=== PATIENT | female | born 1990 ===

== ENCOUNTER 2017-10-20 12:29 | Emergency (ER) | payer OTHER ==
[2017-10-20 12:56] VITALS: BP 102/67; PULSE 60; RESP 20; TEMP 98.2; O2SAT 100
--- NOTE | 2017-10-20 13:22 | C.PDOC ---
History Of Present Illness 27 y/o female with no PMHx presents to ED with complaints of throbbing diffuse headache with associated nausea and blurred vision gradually developed since this morning. Pt admits, took 2 aspirin with no improvement. Patient reports she was recently diagnosed with Tinea on Right cheek, using Topical cream with moderate improvement, also completed AMoxicilllin course ( last dose was yesterday). Otherwise, patient denies recently illness, fever, chills, denies "worse headache of life" , dizziness, N/V, double vision, floaters, denies salomon pain, drooling, dysphagia, dyspnea, CP, SOB, palpitation, abd. pain, diarrhea, back pain, denies weakness, sensory or vascular deficits to B?L UEs and LEs. Ambulate to ED for evaluation, not in any apparent distress. Time Seen by Provider: 10/20/17 12:59 Chief Complaint (Nursing): Headache History Per: Patient History/Exam Limitations: no limitations Onset/Duration Of Symptoms: Hrs Current Symptoms Are (Timing): Still Present Past Medical History Reviewed: Historical Data, Nursing Documentation, Vital Signs Vital Signs: Last Vital Signs Temp 98.2 F 10/20/17 12:51 Pulse 60 10/20/17 12:51 Resp 20 10/20/17 12:51 BP 102/67 10/20/17 12:51 Pulse Ox 100 10/20/17 15:02 - Medical History PMH: No Chronic Diseases Surgical History: No Surg Hx Family History: States: No Known Family Hx - Social History Hx Alcohol Use: No Hx Substance Use: No - Immunization History Hx Tetanus Toxoid Vaccination: No Hx Influenza Vaccination: No Hx Pneumococcal Vaccination: No Review Of Systems Constitutional: Negative for: Fever, Chills Eyes: Positive for: Vision Change Gastrointestinal: Positive for: Nausea. Negative for: Vomiting, Abdominal Pain Skin: Negative for: Rash Neurological: Positive for: Headache. Negative for: Weakness, Numbness, Dizziness Physical Exam - Physical Exam Appears: Non-toxic, No Acute Distress Skin: Normal Color, Warm, Dry, Rash (erythematous pacth with clear center noted to Right cheek area. No edema, no proximal streaking, no discharges.) Head: Atraumatic, Normacephalic Eye(s): bilateral: PERRL, EOMI Ear(s): Bilateral: Normal Nose: No Flaring, No Discharge Oral Mucosa: Moist, No Drooling Tongue: Normal Appearing Lips: Normal Appearing Throat: No Erythema, No Drooling Neck: Trachea Midline, Supple, Other ((-) meningeal sign) Cardiovascular: Rhythm Regular, No Murmur, No JVD Respiratory: No Decreased Breath Sounds, No Accessory Muscle Use, No Rales, No Rhonchi, No Wheezing Gastrointestinal/Abdominal: Soft, No Tenderness, No Guarding, No Rebound Back: No CVA Tenderness Extremity: Normal ROM, No Pedal Edema, No Calf Tenderness, No Swelling Neurological/Psych: Oriented x3, Normal Speech, Normal Cognition, Normal Motor, Normal Sensation, Normal Reflexes Gait: Steady ED Course And Treatment - Laboratory Results Urine POC: Negative O2 Sat by Pulse Oximetry: 100 (RA) Pulse Ox Interpretation: Normal Progress Note: On re-evaluation, pt is afebrile, hemodynamicaly stable. Non- toxic. Tolerate PO well in ED. PulseOx 100% RA. Head: AT/NC. ENT: no acute findings. uvula midline, no edema. neck: Supple, (-) meningeal sign. Lungs: CTA B/L, BS equal B/L. CVS: (+)S1S2, reg. Abd: benign. Neuorlogicaly intact. UA results review (+)WBC. Pt has clinical findings c/w headache r/o migraine , UTI sx. Pt advised. re.f to f/u with PMD, neurologist in 2-3 days for re- eavl. return to ED if any worsening ro new changes Disposition Counseled Patient/Family Regarding: Studies Performed, Diagnosis, Need For Followup, Rx Given - Disposition Referrals: [facility] [Outside] Adolph Alvarez MD [Staff Provider] - Disposition: HOME/ ROUTINE Disposition Time: 13:52 Condition: STABLE Additional Instructions: TAKE MEDICATION PRESCRIBED NEED FOR HEADACHE BEDREST, ENCOURAGE FLUIDS FOLLOW UP WITH PMD, AND NEUROLOGY IN 2- 3DAYS FOR RE-EVALUATION. RETURN TO ED IF ANY WORSENING OR NEW CHANGES. Prescriptions: Acetaminophen/Butalbital/Caf [Fioricet] 1 tab PO TID PRN #14 tab PRN Reason: Headache Nitrofurantoin Macrocrystals [Macrobid] 1 cap PO BID #14 cap Instructions: Urinary Tract Infection in Women (ED), Migraine Headache (ED), Tension Headache (ED) Forms: [employer] (Colombian) Print Language: TELUGU - Clinical Impression Clinical Impression: Headache, Migraine, Urinary tract infection - PA / HUMAN RESOURCE MANAGEMENT INSTRUCTOR / Resident Statement MD/DO has reviewed & agrees with the documentation as recorded. - Scribe Statement The provider has reviewed the documentation as recorded by the Kofiibevelio Marcum All medical record entries made by the Alfreda were at my direction and personally dictated by me. I have reviewed the chart and agree that the record accurately reflects my personal performance of the history, physical exam, medical decision making, and the department course for this patient. I have also personally directed, reviewed, and agree with the discharge instructions and disposition.
[2017-10-20 13:56] LABS: URINE BILIRUBIN NEGATIVE (NEGATIVE); URINE BLOOD NEGATIVE (NEGATIVE); URINE COLOR Yellow (YELLOW); URINE GLUCOSE (UA) NORMAL (Normal); URINE KETONE NEGATIVE (NEGATIVE); URINE LEUKOCYTE ESTERASE 3+ Leu/uL (Negative); URINE PROTEIN NEGATIVE (NEGATIVE); URINE UROBILINOGEN NORMAL mg/dL (0.2-1.0)
[2017-10-20 14:29] LABS: RBC URINE 2 /hpf (0-3)
[2017-10-20 14:30] LABS: URINE BACTERIA OCC (<OCC); WBC URINE 6 /hpf (0-5)
== END 2017-10-20 15:10 | disposition home or self-care (01) ==
LOC: C.ER 12:29
DX: G43.909 Migraine, unspecified, not intractable, without status migrainosus (principal); N39.0 Urinary tract infection, site not specified
CPT/HCPCS: 81001; 84703; 96372; 99285; J1885

== ENCOUNTER 2018-02-10 09:16 | Emergency (ER) | payer OTHER ==
--- NOTE | 2018-02-10 10:40 | C.PDOC ---
History Of Present Illness 27 y/o female presents to ED with complaints of suprapubic and epigastric abdominal pain since yesterday with associated distention after po intake. Patient reports throat pain when swallowing and states she has noted blood when wiping after urinating since yesterday. Last LMP was2 months ago but reports home test have been negative, last one was taken 2 weeks ago. Patient admits to last bowel movement this morning and denies fever, chills, vaginal discharge, dysuria or any other complaints at this time. Time Seen by Provider: 02/10/18 09:29 Chief Complaint (Nursing): Abdominal Pain History Per: Patient History/Exam Limitations: no limitations Onset/Duration Of Symptoms: Days Current Symptoms Are (Timing): Still Present Location Of Pain/Discomfort: Epigastric, Suprapubic Past Medical History Reviewed: Historical Data, Nursing Documentation, Vital Signs Vital Signs: Last Vital Signs Temp 98.6 F 02/10/18 12:59 Pulse 72 02/10/18 12:59 Resp 18 02/10/18 12:59 BP 110/72 02/10/18 12:59 Pulse Ox 99 02/13/18 20:39 - Medical History PMH: No Chronic Diseases Surgical History: No Surg Hx Family History: States: No Known Family Hx - Social History Hx Alcohol Use: No Hx Substance Use: No - Immunization History Hx Tetanus Toxoid Vaccination: No Hx Influenza Vaccination: No Hx Pneumococcal Vaccination: No Review Of Systems Constitutional: Negative for: Fever, Chills ENT: Positive for: Throat Pain Respiratory: Negative for: Cough Gastrointestinal: Positive for: Abdominal Pain. Negative for: Nausea, Vomiting , Constipation Genitourinary: Negative for: Dysuria, Vaginal Discharge Skin: Negative for: Rash Physical Exam - Physical Exam Appears: Non-toxic, No Acute Distress Skin: Warm, Dry, No Rash Head: Atraumatic, Normacephalic Eye(s): bilateral: PERRL, EOMI Oral Mucosa: Moist Tongue: Normal Appearing Lips: Normal Appearing Throat: Erythema, No Exudate, Other (Right tonsil swollen) Neck: Normal ROM, Supple Cardiovascular: Rhythm Regular, No Murmur Respiratory: Normal Breath Sounds, No Rales, No Rhonchi, No Wheezing Gastrointestinal/Abdominal: Soft, Tenderness (Mild suprapubic and Epigastric), No Distention, No Guarding, No Rebound Back: No CVA Tenderness Extremity: Normal ROM, No Tenderness Neurological/Psych: Oriented x3, Normal Speech, Normal Cognition ED Course And Treatment - Laboratory Results Result Diagrams: 02/10/18 10:35 02/10/18 10:35 O2 Sat by Pulse Oximetry: 99 (RA) Pulse Ox Interpretation: Normal Progress Note: Blood work, UA, Urine culture, Rapid Strep test ordered. Pepcid administered Medical Decision Making Medical Decision Making: pt with urinary symptoms, suprapubic and epigastric pain. labs normal. pt feeling better after pepcid. upreg neg. abdomen soft, nd nt on re-exam. d/c home with keflex for +strep and uti. Disposition Counseled Patient/Family Regarding: Studies Performed, Diagnosis, Need For Followup, Rx Given - Disposition Referrals: [facility] [Outside] Disposition: HOME/ ROUTINE Disposition Time: 12:30 Condition: IMPROVED Additional Instructions: Por favor melecio ms hollis. [place] antibiticos segn lo prescrito. [place] pepcid para el dolor abdominal. Seguimiento en la clnica [place]. Prescriptions: Cephalexin [Keflex] 250 mg PO Q6 #28 capsule Famotidine [Pepcid] 20 mg PO DAILY #14 tab Instructions: Urinary Tract Infection, Adult (DC), Strep Throat (DC) Forms: Gen Discharge Inst [employer], [facility] (Stateless) Print Language: BRAZILIAN - Clinical Impression Clinical Impression: Strep pharyngitis, UTI (urinary tract infection) - PA / PROFILING MACHINE SET UP OPERATOR TOOL / Resident Statement MD/DO has reviewed & agrees with the documentation as recorded. - Scribe Statement The provider has reviewed the documentation as recorded by the Kofiibevelio Marcum All medical record entries made by the Alfreda were at my direction and personally dictated by me. I have reviewed the chart and agree that the record accurately reflects my personal performance of the history, physical exam, medical decision making, and the department course for this patient. I have also personally directed, reviewed, and agree with the discharge instructions and disposition.
[2018-02-10 10:44] LABS: BASO # 0.1 K/uL (0.0-0.2); BASO % 0.8 % (0.0-2.0); EOS # 0.4 K/uL (0.0-0.7); EOS % 4.8 % (0.0-4.0); LYMPH # 2.2 K/uL (1.0-4.3); MEAN CELL VOLUME 83.1 fL (81.0-99.0); MEAN CORPUSCULAR HEMOGLOBIN 27.4 pg (27.0-31.0); MEAN CORPUSCULAR HGB CONC 32.9 g/dL (33.0-37.0); MEAN PLATELET VOLUME 7.6 fL (7.2-11.7); MONO # 0.4 K/uL (0.0-0.8); MONO % 5.4 % (0.0-10.0); NEUT # 4.8 K/uL (1.8-7.0); RBC 4.74 Mil/uL (3.80-5.20); RED CELL DISTRIBUTION WIDTH 14.8 % (11.5-14.5); WHITE BLOOD COUNT 7.8 K/uL (4.8-10.8)
[2018-02-10 10:51] LABS: SQUAMOUS EPITHIAL 27 /hpf (0-5); URINE BILIRUBIN NEGATIVE (NEGATIVE); URINE BLOOD 1+ (NEGATIVE); URINE CLARITY Hazy (Clear); URINE GLUCOSE (UA) NORMAL (Normal); URINE LEUKOCYTE ESTERASE 1+ Leu/uL (Negative); URINE PROTEIN NEGATIVE (NEGATIVE); URINE UROBILINOGEN NORMAL mg/dL (0.2-1.0)
[2018-02-10 10:53] LABS: ALB/GLOB RATIO 1.1 (1.0-2.1); ALT/SGPT 32 U/L (9-52); AST/SGOT 27 U/L (14-36); BLOOD UREA NITROGEN 7 mg/dL (7-17); CALCIUM 8.9 mg/dl (8.6-10.4); GFR AFRICAN-AMERICAN > 60; GFR NON-AFRICAN AMERICAN > 60; LIPASE 56 U/L (23-300)
[2018-02-10 10:54] LABS: URINE COLOR YELLOW (YELLOW)
[2018-02-10 13:01] VITALS: BP 110/72; PULSE 72; RESP 18; TEMP 98.6
[2018-02-13 20:39] VITALS: O2SAT 99
== END 2018-02-10 13:00 | disposition home or self-care (01) ==
LOC: C.ER 09:16
DX: N39.0 Urinary tract infection, site not specified (principal); J02.0 Streptococcal pharyngitis

== ENCOUNTER 2018-03-15 11:35 | Emergency (ER) | payer SELFPAY ==
[2018-03-15 11:54] VITALS: BMI 30.3
[2018-03-15 11:57] VITALS: O2SAT 99
[2018-03-15 12:10] LABS: HCG,QUALITATIVE URINE NEGATIVE (NEGATIVE)
[2018-03-15 12:13] LABS: SQUAMOUS EPITHIAL 2 /hpf (0-5); URINE BACTERIA RARE (<OCC); URINE BILIRUBIN NEGATIVE (NEGATIVE); URINE BLOOD 3+ (NEGATIVE); URINE CLARITY Clear (Clear); URINE COLOR Yellow (YELLOW); URINE GLUCOSE (UA) NORMAL (Normal); URINE LEUKOCYTE ESTERASE 1+ Leu/uL (Negative); URINE PROTEIN NEGATIVE (NEGATIVE); URINE UROBILINOGEN NORMAL mg/dL (0.2-1.0)
--- NOTE | 2018-03-15 13:11 | C.PDOC ---
History Of Present Illness 28 y/o female presents to the ER complaining of intermittent RLQ abdominal pain which has been present since yesterday. Patient states that the pain is mild. Patient reports that she was evaluated in the ER 2 weeks ago for upper abdominal pain. She notes that she does not have upper abdominal pain anymore. Patient is also complaining of whitish vaginal discharge which has been present for the past 1 week. She has irregular periods and her LMP was on 12/21/17. States she took test which was negative. 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 Patient denies having nausea, vomiting, diarrhea, and constipation. Time Seen by Provider: 03/15/18 12:16 Chief Complaint (Nursing): Abdominal Pain History Per: Patient History/Exam Limitations: no limitations Onset/Duration Of Symptoms: Days Current Symptoms Are (Timing): Still Present Severity: Moderate Location Of Pain/Discomfort: RLQ Associated Symptoms: denies: Fever, Chills, Nausea, Vomiting, Diarrhea, Constipation Past Medical History Reviewed: Historical Data, Nursing Documentation, Vital Signs Vital Signs: Last Vital Signs Temp 98.1 F 03/15/18 11:50 Pulse 61 03/15/18 11:50 Resp 18 03/15/18 11:50 BP 117/71 03/15/18 11:50 Pulse Ox 99 03/15/18 13:18 - Medical History PMH: No Chronic Diseases Surgical History: No Surg Hx Family History: States: No Known Family Hx - Social History Hx Alcohol Use: No Hx Substance Use: No - Immunization History Hx Tetanus Toxoid Vaccination: No Hx Influenza Vaccination: No Hx Pneumococcal Vaccination: No Review Of Systems Except As Marked, All Systems Reviewed And Found Negative. Constitutional: Negative for: Fever, Chills Gastrointestinal: Positive for: Abdominal Pain. Negative for: Nausea, Vomiting , Diarrhea, Constipation, Hematochezia, Rectal Pain Genitourinary: Positive for: Frequency, Vaginal Discharge. Negative for: Dysuria Skin: Negative for: Rash Neurological: Negative for: Headache Physical Exam - Physical Exam Appears: Well, Non-toxic, No Acute Distress Skin: Normal Color, Warm, Dry Head: Atraumatic, Normacephalic Eye(s): bilateral: Normal Inspection, EOMI Neck: Normal ROM, Supple Chest: Symmetrical Cardiovascular: Rhythm Regular Respiratory: Normal Breath Sounds, No Rales, No Rhonchi, No Wheezing Gastrointestinal/Abdominal: Soft, Tenderness (minimal tenderness to RLQ with deep palpation), No Mass, No Distention, No Guarding, No Rebound, No Hernia, Other (overweight) Back: Normal Inspection, No CVA Tenderness Pelvic: Normal External Exam (no lesions), Vaginal Bleeding (mild blood in vaginal vault), No Vaginal Discharge, No Cervical Motion Tenderness, No Adnexal Tenderness Extremity: Normal ROM Neurological/Psych: Oriented x3, Normal Speech ED Course And Treatment - Laboratory Results Result Diagrams: 03/15/18 13:10 03/15/18 13:10 O2 Sat by Pulse Oximetry: 99 (RA) Pulse Ox Interpretation: Normal - CT Scan/US transvaginal Other Rad Studies (CT/US): Read By Radiologist, Radiology Report Reviewed CT/US Interpretation: Accession No. : [id number]. Patient Name / ID : PEPE IRVIN / [id number]. Exam Date : 03/15/2018 13:39:45 ( Approved ). Study Comment : Sex / Age : F / 28Y. Creator : Kalyan Weiss MD. Dictator : Kalyan Weiss MD. Electronic Device Monitor : Director Private : Kalyan Weiss MD. Approver2 : Report Date : 03/15/2018 14:06:38. My Comment : . Pelvic ultrasound. History: Right-sided pelvic pain. Comparison: None available. Technique: Real-time sonography was performed through the pelvis utilizing transvaginal technique. Findings: Uterus: 7.0 x 3.6 x 5.1 centimeters. Heterogeneous echotexture. Retroverted. Echogenic calcifications within the uterus measuring up to 4 millimeters. Endometrium measures 3.4 millimeters, within normal limits. Right ovary: 3.6 x 1.8 x 2.3 centimeters. Normal flow. Left ovary: 4.4 x 3.0 x 3.5 centimeters. Normal flow. Hypoechoic cyst measuring 3.8 x 2.9 x 3.1 centimeters. Small amount of free fluid by the uterine fundus. Impression: 3.8 centimeter left ovarian cyst. Free fluid adjacent to the uterine fundus. Heterogeneous echotexture of the uterus with a few nodular calcifications seen within the uterus measuring up to 4 millimeters. Clinical correlation. Medical Decision Making Medical Decision Making: Impression: pelvic pain Plan: --Labs --UA --HCG -- US-Transvaginal --GC/C cultures Progress: Labs reviewed and unremarkable, no leukocytosis or bands and normal CMP. UA shows UTI US shows 3.8 centimeter left ovarian cyst. Free fluid adjacent to the uterine fundus. See full report [id number] Patient re-evaluated was sitting comfortably on stretcher talking on cell phone. She reports feeling comfortable, no pain at this time. Her vital signs WNL and abdomen remains soft and is nontender. I explained her results and recommended follow up with mounter and clinic. I provided copy of results. She expressed understanding. all questions answered. Instruct to return to hospital for any worsening symptoms or concern Disposition Counseled Patient/Family Regarding: Diagnosis, Need For Followup, Rx Given - Disposition Referrals: Beverly Baumann MD [Staff Provider] - Disposition: HOME/ ROUTINE Disposition Time: 14:46 Condition: GOOD Additional Instructions: Your labs were normal and urine analysis shows infection Take antibiotic twice daily until completed Drink fluids and rest. Take Tylenol or Ibuprofen for any pain Ultrasound shows ovarian cyst Follow up with your primary medical doctor or clinic in 2-5 days for further evaluation. Return to the emergency department at any time if symptoms persist or worsen. Carleen laboratorios fueron normales y el anlisis de orina muestra infeccin [place] antibiticos dos veces al da hasta que se complete Ranjana lquidos y descansa. [place] Tylenol o ibuprofeno para cualquier dolor La ecografa muestra un quiste ovrico Jame un seguimiento con beth mdico primario o clnica en 2-5 thomas para juventino evaluacin adicional. Regrese al departamento de emergencia en cualquier momento si los sntomas persisten o empeoran. Prescriptions: Ciprofloxacin [Cipro] 1 tab PO BID #10 tab Instructions: Urinary Tract Infection, Adult (DC), Acute Pelvic Pain (DC) Forms: [employer] (Turkmen) Print Language: YI - POA Present On Arrival: None - Clinical Impression Clinical Impression: Ovarian cyst, Pelvic pain, Urinary tract infection - PA / RAZOR GRINDER / Resident Statement MD/DO has reviewed & agrees with the documentation as recorded. - Scribe Statement The provider has reviewed the documentation as recorded by the Matteoe Kellie Castro Provider Attestation All medical record entries made by the Kofiibevelio were at my direction and personally dictated by me. I have reviewed the chart and agree that the record accurately reflects my personal performance of the history, physical exam, medical decision making, and the department course for this patient. I have also personally directed, reviewed, and agree with the discharge instructions and disposition.
[2018-03-15 13:14] LABS: BASO # 0.1 K/uL (0.0-0.2); BASO % 1.3 % (0.0-2.0); EOS # 0.3 K/uL (0.0-0.7); EOS % 4.8 % (0.0-4.0); HEMOGLOBIN 13.3 g/dL (11.0-16.0); LYMPH % 29.2 % (20.0-40.0); MEAN CELL VOLUME 84.7 fL (81.0-99.0); MEAN CORPUSCULAR HEMOGLOBIN 29.1 pg (27.0-31.0); MEAN CORPUSCULAR HGB CONC 34.4 g/dL (33.0-37.0); MEAN PLATELET VOLUME 7.8 fL (7.2-11.7); MONO # 0.4 K/uL (0.0-0.8); MONO % 5.8 % (0.0-10.0); NEUT % 58.9 % (50.0-75.0); NRBC % 0.1 % (0.0-2.0); RBC 4.56 Mil/uL (3.80-5.20); RED CELL DISTRIBUTION WIDTH 14.7 % (11.5-14.5); WHITE BLOOD COUNT 6.9 K/uL (4.8-10.8)
[2018-03-15 13:27] LABS: ALB/GLOB RATIO 1.1 (1.0-2.1); ALBUMIN 4.1 g/dL (3.5-5.0); CALCIUM 8.9 mg/dl (8.6-10.4); GFR AFRICAN-AMERICAN > 60; GFR NON-AFRICAN AMERICAN > 60
[2018-03-15 13:39] LABS: ALT/SGPT 17 U/L (9-52); AST/SGOT 29 U/L (14-36); BLOOD UREA NITROGEN 7 mg/dL (7-17)
--- NOTE | 2018-03-15 14:08 | US ---
Pelvic ultrasound History: Right-sided pelvic pain. Comparison: None available. Technique: Real-time sonography was performed through the pelvis utilizing transvaginal technique. Findings: Uterus: 7.0 x 3.6 x 5.1 centimeters. Heterogeneous echotexture. Retroverted. Echogenic calcifications within the uterus measuring up to 4 millimeters. Endometrium measures 3.4 millimeters, within normal limits. Right ovary: 3.6 x 1.8 x 2.3 centimeters. Normal flow. Left ovary: 4.4 x 3.0 x 3.5 centimeters. Normal flow. Hypoechoic cyst measuring 3.8 x 2.9 x 3.1 centimeters. Small amount of free fluid by the uterine fundus. Impression: 3.8 centimeter left ovarian cyst. Free fluid adjacent to the uterine fundus. Heterogeneous echotexture of the uterus with a few nodular calcifications seen within the uterus measuring up to 4 millimeters. Clinical correlation.
[2018-03-15 15:05] VITALS: BP 119/71; PULSE 58; RESP 20; TEMP 98.3
== END 2018-03-15 15:04 | disposition home or self-care (01) ==
LOC: C.ER 11:35
DX: N83.202 Unspecified ovarian cyst, left side (principal); N39.0 Urinary tract infection, site not specified; R10.2 Pelvic and perineal pain